=== PATIENT | female | born 1935 | race Caucasian/White ===

== ENCOUNTER 2016-03-07 10:19 | Emergency (ER) | payer MEDICARE, OTHER ==
[2016-03-07] MEDS ORDERED: KETOROLAC 30 MG/ML 1 ML VIAL IVP STA ×2 (10:32→12:04)
[2016-03-07] MEDS ORDERED: HYDROmorphone 1 MG/ML 1 ML SYRINGE IVP STA ×2 (10:32→15:15)
[2016-03-07 10:33] VITALS: TEMP 97.3
--- NOTE | 2016-03-07 10:45 | ED ---
Lower Extremity Injury HPI - General Stated Complaint: Right Hip Pain Time Seen by Provider: 03/07/16 10:19 Source: patient, family, EMS Mode of arrival: EMS Limitations: no limitations - History of Present Illness Initial Comments: This is a 80-year-old female history of back surgery as well as peripheral neuropathy who states she had the onset last night after sitting for several hours of severe sharp pain radiating from her right buttock and hip area to her right foot. She complains of pain to the right foot he denies any trauma she has had previous back surgeries however. She denies any urinary or fecal incontinence. She states the pain currently as 9/10 in severity and does increase to above 10 with movement. She did take one of her 's [place] without much improvement. She voices no other complaint. No reported fevers chills or sweats no focal weakness patient also does state she had some abdominal discomfort MD Complaint: other - Related Data Home Medications Medication Instructions Recorded Confirmed Aspirin 81 mg PO DAILY 04/24/14 03/07/16 Atenolol [Tenormin] 50 mg PO DAILY 04/24/14 03/07/16 Cholecalciferol [Vitamin D3] 2,000 unit PO DAILY@1200 04/24/14 03/07/16 Furosemide [Lasix] 40 mg PO DAILY 04/24/14 03/07/16 Lisinopril [Prinivil] 10 mg PO DAILY 04/24/14 03/07/16 Omeprazole [PriLOSEC] 20 mg PO AC-BRKFST 04/24/14 03/07/16 Febuxostat [Uloric] 40 mg PO DAILY 03/07/16 03/07/16 Garlic 1 tab PO DAILY 03/07/16 03/07/16 Multivitamins, Thera [Multivitamin] 1 tab PO DAILY 03/07/16 03/07/16 Pneumoc 13-Doris Conj-Dip Crm/Pf 0.5 ml IM ONCE 03/07/16 03/07/16 [Prevnar 13 Syringe] Previous Rx's Medication Instructions Recorded HYDROcodone/APAP 7.5-325MG [[place] 1 tab PO Q6HR PRN #30 tab 03/07/16 7.5-325] Allergies Allergy/AdvReac Type Severity Reaction Status Date / Time codeine Allergy Nausea & Verified 03/07/16 11:00 Vomiting Penicillins Allergy Unknown Verified 03/07/16 11:00 Sulfa (Sulfonamide Allergy Unknown Verified 03/07/16 11:00 Antibiotics) Review of Systems ROS Statement: Those systems with pertinent positive or pertinent negative responses have been documented in the HPI. ROS Other: All systems not noted in ROS Statement are negative. Past Medical History Past Medical History: Hyperlipidemia, Hypertension Additional Past Medical History / Comment(s): hemothorax History of Any Multi-Drug Resistant Organisms: None Reported Past Surgical History: Adenoidectomy, Appendectomy, Tonsillectomy, Tubal Ligation Past Psychological History: No Psychological Hx Reported Smoking Status: Former smoker Past Alcohol Use History: None Reported Past Drug Use History: None Reported General Exam - General Exam Comments Initial Comments: This is a well-developed well-nourished awake alert oriented 3 female Limitations: no limitations General appearance: alert, anxious, in distress Head exam: Present: atraumatic, normocephalic, normal inspection Eye exam: Present: normal appearance, PERRL, EOMI. Absent: scleral icterus, conjunctival injection, periorbital swelling ENT exam: Present: normal exam, mucous membranes moist Neck exam: Present: normal inspection. Absent: tenderness, meningismus, lymphadenopathy Respiratory exam: Present: normal lung sounds bilaterally. Absent: respiratory distress, wheezes, rales, rhonchi, stridor Cardiovascular Exam: Present: regular rate, normal rhythm, normal heart sounds. Absent: systolic murmur, diastolic murmur, rubs, gallop, clicks GI/Abdominal exam: Present: soft, normal bowel sounds. Absent: distended, tenderness, guarding, rebound, rigid, mass, bruit, pulsatile mass, hernia Rectal exam: Present: deferred Extremities exam: Present: normal inspection, full ROM, normal capillary refill , other (Tenderness over the right gluteal fold also some tenderness palpation of the right foot no sensory motor or vascular deficits however. Capillary refill is less than 2 seconds). Absent: tenderness, pedal edema, joint swelling , calf tenderness Back exam: Present: normal inspection, tenderness, other (Mild tenderness over the right paraspinous muscles at the lower lumbar SI region no bony prominence tenderness no step-off or crepitation.). Absent: CVA tenderness (R), CVA tenderness (L) Neurological exam: Present: alert, oriented X3, CN II-XII intact Psychiatric exam: Present: normal affect, normal mood Skin exam: Present: warm, dry, intact, normal color. Absent: rash Course Vital Signs 03/07/16 03/07/16 03/07/16 10:31 12:35 15:28 Temperature 97.3 F L Pulse Rate 75 61 Respiratory 18 16 16 Rate Blood Pressure 174/79 178/81 O2 Sat by Pulse 98 99 100 Oximetry - Reevaluation(s) Reevaluation #1: 03/07/16 10:48 Per family patient does have a MRI information [facility]. They'll be reviewed before any imaging is considered. Reevaluation #2: 03/07/16 12:04 Patient is getting some relief at rest still has she states significant pain with movement. Medical Decision Making - Medical Decision Making I did reevaluate the patient on several occasions she states she had minimal improvement of her pain I did offer her admission for pain control she will not accept that at this time due to the insurance status of an observational nature. She'll be discharged with a prescription for [place] pain medication she did receive Decadron she is follow-up with her doctor and return when necessary - Lab Data Result diagrams: 03/07/16 10:50 03/07/16 10:50 Lab Results 03/07/16 03/07/16 03/07/16 Range/Units 10:50 10:50 13:00 WBC 8.2 (3.8-10.6) k/uL RBC 3.86 (3.80-5.40) m/uL Hgb 12.4 (11.4-16.0) gm/dL Hct 36.3 (34.0-46.0) % MCV 94.0 (80.0-100.0) fL MCH 32.0 (25.0-35.0) pg MCHC 34.1 (31.0-37.0) g/dL RDW 12.3 (11.5-15.5) % Plt Count 237 (150-450) k/uL Neutrophils % 73 % Lymphocytes % 17 % Monocytes % 5 % Eosinophils % 3 % Basophils % 1 % Neutrophils # 6.0 (1.3-7.7) k/uL Lymphocytes # 1.3 (1.0-4.8) k/uL Monocytes # 0.4 (0-1.0) k/uL Eosinophils # 0.2 (0-0.7) k/uL Basophils # 0.0 (0-0.2) k/uL Sodium 141 (137-145) mmol/L Potassium 4.1 (3.5-5.1) mmol/L Chloride 101 (98-107) mmol/L Carbon Dioxide 27 (22-30) mmol/L Anion Gap 13 mmol/L BUN 24 H (7-17) mg/dL Creatinine 1.09 H (0.52-1.04) mg/dL Est GFR (MDRD) Af Amer 59 (>60 ml/min/1.73 sqM) Est GFR (MDRD) Non-Af 48 (>60 ml/min/1.73 sqM) Glucose 107 H (74-99) mg/dL Calcium 9.2 (8.4-10.2) mg/dL Magnesium 1.8 (1.6-2.3) mg/dL Total Bilirubin 0.5 (0.2-1.3) mg/dL AST 25 (14-36) U/L ALT 36 (9-52) U/L Alkaline Phosphatase 71 (38-126) U/L Total Protein 6.8 (6.3-8.2) g/dL Albumin 4.1 (3.5-5.0) g/dL Amylase 79 (30-110) U/L Lipase 36 (23-300) U/L Urine Color Yellow Urine Appearance Cloudy H (Clear) Urine pH 5.5 (5.0-8.0) Ur Specific [place] 1.012 (1.001-1.035) Urine Protein Negative (Negative) Urine Glucose (UA) Negative (Negative) Urine Ketones Negative (Negative) Urine Blood Negative (Negative) Urine Nitrate Negative (Negative) Urine Bilirubin Negative (Negative) Urine Urobilinogen <2.0 (<2.0) mg/dL Ur Leukocyte Esterase Large H (Negative) Urine RBC 11 H (0-5) /hpf Urine WBC 65 H (0-5) /hpf Ur Squamous Epith Cells 11 H (0-4) /hpf Hyaline Casts 5 H (0-2) /lpf Urine Mucus Rare H (None) /hpf - Radiology Data Radiology results: report reviewed (I did review the imaging and report there is evidence of degenerative changes spondylolisthesis no acute fractures.), image reviewed Disposition Clinical Impression: Mechanical back pain, Sciatica Disposition: HOME SELF-CARE Condition: Stable Instructions: Acute Low Back Pain (ED), Chronic Back Pain (ED), Sciatica (ED) Prescriptions: HYDROcodone/APAP 7.5-325MG [[place] 7.5-325] 1 tab PO Q6HR PRN #30 tab PRN Reason: Pain
[2016-03-07 11:13] LABS: Basophils % (A) 1 %; CH 32.1; CHCM 34.3; Eosinophils # (A) 0.2 k/uL (0-0.7); Eosinophils % (A) 3 %; HCT 36.3 % (34.0-46.0); HDW 2.52; HGB 12.4 gm/dL (11.4-16.0); Luc # (Auto) 0.21; Luc % (Auto) 3; Lymphocytes # (A) 1.3 k/uL (1.0-4.8); Lymphocytes % (A) 17 %; MCHC 34.1 g/dL (31.0-37.0); Mean Platelet Volume 7.2; Monocytes # (A) 0.4 k/uL (0-1.0); Monocytes % (A) 5 %; Neutrophils % (A) 73 %; RBC 3.86 m/uL (3.80-5.40); RDW 12.3 % (11.5-15.5); WBC 8.2 k/uL (3.8-10.6); WBC (Perox) 8.42
[2016-03-07 11:19] LABS: Calcium 9.2 mg/dL (8.4-10.2); Magnesium 1.8 mg/dL (1.6-2.3); Potassium 4.1 mmol/L (3.5-5.1); Total Bilirubin 0.5 mg/dL (0.2-1.3); Total Protein 6.8 g/dL (6.3-8.2)
[2016-03-07] MEDS ORDERED: DEXAMETHASONE SOD PHOSPHATE 10 MG/ML 1 ML VIAL IV STA (12:04)
[2016-03-07 12:37] VITALS: RESP 16
[2016-03-07] MEDS ORDERED: SODIUM CHLORIDE 0.9% 1,000 ML IV STA (13:07)
[2016-03-07 13:16] LABS: Appearance,Urine Cloudy (Clear); Bilirubin,Urine Negative (Negative); Glucose,Urine (UA) Negative (Negative); Ketones,Urine Negative (Negative); Leukocyte Esterase,Urine Large (Negative); Mucus,Urine Rare /hpf; Nitrite,Urine Negative (Negative); PH, Urine 5.5 (5.0-8.0); Particle Count 7907; Protein,Urine Negative (Negative); RBC,Urine 11 /hpf (0-5); Specific Gravity,Urine 1.012 (1.001-1.035); Squamous Epithelial Cell,Urine 11 /hpf (0-4); UA Billing (MACRO vs. MICRO) MICRO; Urobilinogen,Urine <2.0 mg/dL (<2.0); WBC,Urine 65 /hpf (0-5)
--- NOTE | 2016-03-07 14:30 | CT ---
EXAMINATION TYPE: CT lumbar spine wo con DATE OF EXAM: 03/07/2016 2:18 PM COMPARISON: 03/08/2010 HISTORY: Right hip pain CT DLP: 489.60 mGycm Automated exposure control for dose reduction was used. Unenhanced CT of the lumbar spine was performed. Bone and soft tissue window settings are submitted as well as coronal and sagittal reconstructions. At T12-L1 there is stable fusion. At L1-L2, there is no disc bulge, central or foraminal narrowing. At L2-L3, there is moderate canal narrowing due to facet arthropathy, circumferential disc bulge and thickened ligamentum flavum. Bilateral significant foraminal encroachment. At L3-L4, there is grade 1 anterolisthesis of L3 on L4 likely due to facet arthropathy. There is cent ral canal stenosis due to circumferential disc bulge and bilateral facet arthropathy. Findings sugges t previous surgery correlate clinically. Severe degenerative disc disease noted. At L4-L5, there is bilateral facet arthropathy and circumferential disc bulge resulting to mild centr al canal narrowing. Severe degenerative disc disease noted. Correlate for previous surgery. At L5-S1, there is no disc bulge, central or foraminal narrowing. There is an incidental finding of r ight renal cysts. IMPRESSION: Extensive postsurgical change and severe degenerative disc disease with multilevel foraminal encroach ment and canal stenosis as discussed above. Grade 1 anterolisthesis L3 on L4 appears degenerative.
[2016-03-07 16:15] VITALS: BP 159/81; PULSE 71
== END 2016-03-07 16:15 | disposition home or self-care (01) ==
LOC: EC 10:19
DX: M54.30 Sciatica, unspecified side (principal); I10 Essential (primary) hypertension; M47.816 Spondylosis without myelopathy or radiculopathy, lumbar region; M51.36 Other intervertebral disc degeneration, lumbar region; M48.06 Spinal stenosis, lumbar region; M51.26 Other intervertebral disc displacement, lumbar region; Z87.891 Personal history of nicotine dependence; Z88.0 Allergy status to penicillin; Z88.5 Allergy status to narcotic agent; Z88.2 Allergy status to sulfonamides; Z79.82 Long term (current) use of aspirin; Z79.899 Other long term (current) drug therapy
CPT/HCPCS: 99284; 96374; 96375 ×2; 96376 ×2; 96361 ×3; 36415; 80053; 82150; 83690; 83735; 85025; 81001; 72131; J1100; J1885; J1170

== ENCOUNTER → 2016-07-11 | Outpatient (CLI) | payer MEDICARE, OTHER ==
[2016-07-11 17:37] LABS: CH 31.2; CHCM 33.3; HCT 36.5 % (34.0-46.0); HGB 11.9 gm/dL (11.4-16.0); MCH 30.6 pg (25.0-35.0); MCHC 32.6 g/dL (31.0-37.0); MCV 94.1 fL (80.0-100.0); Mean Platelet Volume 7.4; RBC 3.88 m/uL (3.80-5.40); RDW 13.1 % (11.5-15.5); WBC 13.9 k/uL (3.8-10.6)
[2016-07-11 18:00] LABS: Calcium 9.8 mg/dL (8.4-10.2); Potassium 3.8 mmol/L (3.5-5.1); Total Bilirubin 0.6 mg/dL (0.2-1.3); Total Protein 7.5 g/dL (6.3-8.2)
--- NOTE | 2016-07-11 19:31 | CT ---
EXAMINATION TYPE: CT abdomen pelvis wo con DATE OF EXAM: 07/11/2016 7:23 PM COMPARISON: NONE HISTORY: Generalized abdominal pain x 1 week with nausea and vomiting. CT DLP: 609.00 mGycm Automated exposure control for dose reduction was used. TECHNIQUE: Helical acquisition of images was performed from the lung bases through the pelvis. FINDINGS: Lung bases are clear. There is no pleural effusion. There is a large hiatal hernia. Liver spleen pancreas appear normal. Gallbladder is contracted. There is a 3 cm cortical cyst on the lateral right kidney. There is no hydronephrosis. There is no adrenal mass. There is no retroperitone al adenopathy. Abdominal aorta is atheromatous. There is no ascites. Bladder is almost empty. There i s no pelvic mass. There are multiple sigmoid diverticula. Appendix is not seen. There is no sign of a ppendicitis. There is lumbar spine surgery with laminectomy defect in the lower lumbar spine. There i s a first-degree L4-5 spondylolisthesis. There is a moderate posterior disc herniation at L4-5. IMPRESSION: SPONDYLOTIC CHANGES IN THE LUMBAR SPINE WITH DISC HERNIATION AND SPONDYLOLISTHESIS. HIATAL HERNIA. ATHEROSCLEROTIC VASCULAR DISEASE. NO SIGN OF ACUTE ABDOMEN AND PELVIS. SIGMOID DIVERTICULOSIS WITHOUT SIGN OF DIVERTICULITIS.
== END | disposition home or self-care (01) ==
LOC: RADCTMAIN 17:09
PROVIDERS: ATTEND Physician Assistant
DX: K57.30 Diverticulosis of large intestine without perforation or abscess without bleeding (principal); K92.1 Melena
CPT/HCPCS: 36415; 74176; 80053; 82150; 83690; 85027

== ENCOUNTER → 2016-07-13 | Outpatient (CLI) | payer MEDICARE, OTHER ==
[~2016-07-13] MED LIST: SODIUM CHLORIDE 0.9% 1,000 ML IV ONE; SODIUM CHLORIDE 0.9% 250 ML in EMPTY BAG 1 BAG IV PRN; SODIUM CHLORIDE 0.9% 500 ML in EMPTY BAG 1 BAG IV PRN
[2016-07-13 13:32] VITALS: BP 121/56; PULSE 62; RESP 16; TEMP 98.3
[2016-07-13 15:32] LABS: CH 30.9; CHCM 32.9; HCT 33.1 % (34.0-46.0); HDW 2.62; HGB 11.2 gm/dL (11.4-16.0); MCH 31.8 pg (25.0-35.0); MCHC 33.7 g/dL (31.0-37.0); MCV 94.3 fL (80.0-100.0); Mean Platelet Volume 7.3; RBC 3.51 m/uL (3.80-5.40); RDW 12.9 % (11.5-15.5); WBC 8.6 k/uL (3.8-10.6)
[2016-07-13 15:56] LABS: Calcium 9.1 mg/dL (8.4-10.2); Potassium 3.9 mmol/L (3.5-5.1); Total Bilirubin 0.3 mg/dL (0.2-1.3); Total Protein 6.3 g/dL (6.3-8.2)
== END ==
LOC: PROCWHC3 12:50
PROVIDERS: ATTEND Physician Assistant
DX: E86.0 Dehydration (principal); K57.30 Diverticulosis of large intestine without perforation or abscess without bleeding; D72.829 Elevated white blood cell count, unspecified
CPT/HCPCS: 36415; 80053; 85027; 96360; 96361

== ENCOUNTER 2016-07-16 11:11 | Emergency (ER) | payer MEDICARE, OTHER ==
[2016-07-16] MEDS ORDERED: ONDANSETRON 4 MG/2 ML VIAL IVP STA (11:52)
[2016-07-16] MEDS ORDERED: SODIUM CHLORIDE 0.9% 1,000 ML IV STA (11:52)
--- NOTE | 2016-07-16 12:05 | ED ---
General Adult HPI - General Chief complaint: Abdominal Pain Stated complaint: vomiting Time Seen by Provider: 07/16/16 11:35 Source: patient, family, RN notes reviewed Mode of arrival: wheelchair - History of Present Illness Initial comments: Is a 80-year-old female comes in complaining of nausea and vomiting. Patient states about 9 days ago she vomited for 2 days and then after that she just felt weak she started taking Kaopectate after that because her stomach was still upset. She went to see her family doctor and she saw the PA in the office they did a CAT scan on the CAT scan showed no signs of any inflammation and they started her on Flagyl and Cipro anyhow. Patient states last 2 mornings after she takes her antibiotic she throws them up. Patient states remains very nauseated. Patient states she has chronic diffuse abdominal discomfort but no specific area of pain. Patient states she is mainly here because she is nauseated. Patient denies any diarrhea. Patient denies any fever or chills. Patient denies any difficulty breathing shortness of breath or cough. Patient denies any chest pain. Patient denies any dysuria hematuria urinary frequency. Patient denies any back pain. Patient's stated that for the last week she has not been eating or drinking much at all. - Related Data Home Medications Medication Instructions Recorded Confirmed Atenolol [Tenormin] 50 mg PO DAILY 04/24/14 07/16/16 Furosemide [Lasix] 40 mg PO DAILY 04/24/14 07/16/16 Lisinopril [Prinivil] 10 mg PO DAILY 04/24/14 07/16/16 Febuxostat [Uloric] 40 mg PO DAILY 03/07/16 07/16/16 Multivitamins, Thera [Multivitamin] 1 tab PO DAILY 03/07/16 07/16/16 Omeprazole 20 mg PO DAILY 07/13/16 07/16/16 Ciprofloxacin HCl [Cipro] 500 mg PO BID 07/16/16 07/16/16 Vit C/E/Zn/Coppr/Lutein/Zeaxan 1 cap PO DAILY 07/16/16 07/16/16 [Preservision Areds 2 Softgel] metroNIDAZOLE [Flagyl] 500 mg PO TID 07/16/16 07/16/16 Previous Rx's Medication Instructions Recorded Ondansetron Odt [Zofran Odt] 4 mg PO Q8HR PRN #10 tab 07/16/16 Allergies Allergy/AdvReac Type Severity Reaction Status Date / Time codeine Allergy Nausea & Verified 07/16/16 12:03 Vomiting Penicillins Allergy Unknown Verified 07/16/16 12:03 Sulfa (Sulfonamide Allergy Unknown Verified 07/16/16 12:03 Antibiotics) Review of Systems ROS Statement: Those systems with pertinent positive or pertinent negative responses have been documented in the HPI. ROS Other: All systems not noted in ROS Statement are negative. Past Medical History Past Medical History: Hyperlipidemia, Hypertension Additional Past Medical History / Comment(s): hemothorax History of Any Multi-Drug Resistant Organisms: None Reported Past Surgical History: Adenoidectomy, Appendectomy, Tonsillectomy, Tubal Ligation Additional Past Surgical History / Comment(s): LOWER BACK SURGERY, DROP RIGHT FOOT Past Psychological History: No Psychological Hx Reported Smoking Status: Former smoker Past Alcohol Use History: None Reported Past Drug Use History: None Reported General Exam - General Exam Comments Initial Comments: GENERAL: Patient is well-developed and well-nourished. Patient is nontoxic and well- hydrated and is in mild distress. ENT: Neck is soft and supple. No significant lymphadenopathy is noted. Oropharynx is clear. Moist mucous membranes. Neck has full range of motion without eliciting any pain. EYES: The sclera were anicteric and conjunctiva were pink and moist. Extraocular movements were intact and pupils were equal round and reactive to light. Eyelids were unremarkable. PULMONARY: Unlabored respirations. Good breath sounds bilaterally. No audible rales rhonchi or wheezing was noted. CARDIOVASCULAR: There is a regular rate and rhythm without any murmurs gallops or rubs. ABDOMEN: Very mild epigastric abdominal pain no rebound or guarding.. No palpable organomegaly was noted. There is no palpable pulsatile mass. SKIN: Skin is clear with no lesions or rashes and otherwise unremarkable. NEUROLOGIC: Patient is alert and oriented x3. Cranial nerves II through XII are grossly intact. Motor and sensory are also intact. Normal speech, volume and content. Symmetrical smile. MUSCULOSKELETAL: Normal extremities with adequate strength and full range of motion. LYMPHATICS: No significant lymphadenopathy is noted PSYCHIATRIC: Normal psychiatric evaluation. Normal interpersonal interactions appears functionally intact in deals appropriately with others. No signs of depression. No signs of anxiety. Course Vital Signs 07/16/16 07/16/16 11:33 14:43 Temperature 98.2 F 97.3 F L Pulse Rate 71 61 Respiratory 18 16 Rate Blood Pressure 113/71 134/62 O2 Sat by Pulse 99 99 Oximetry Medical Decision Making - Medical Decision Making I went back into reevaluate the patient she stated she felt much better and she was no longer nauseated. Patient states she wants to go home and try to eat and drink some fluid and see if that makes it feel better. Patient indicated that she no longer was having any abdominal pain. Patient's blood gas was elevated secondary to dehydration - Lab Data Result diagrams: 07/16/16 12:30 07/16/16 12:30 Lab Results 07/16/16 07/16/16 07/16/16 Range/Units 12:30 12:30 12:30 WBC 11.5 H (3.8-10.6) k/uL RBC 4.12 (3.80-5.40) m/uL Hgb 12.4 (11.4-16.0) gm/dL Hct 38.6 (34.0-46.0) % MCV 93.8 (80.0-100.0) fL MCH 30.0 (25.0-35.0) pg MCHC 32.0 (31.0-37.0) g/dL RDW 13.1 (11.5-15.5) % Plt Count 284 (150-450) k/uL Neutrophils % 81 % Lymphocytes % 11 % Monocytes % 5 % Eosinophils % 1 % Basophils % 1 % Neutrophils # 9.3 H (1.3-7.7) k/uL Lymphocytes # 1.3 (1.0-4.8) k/uL Monocytes # 0.6 (0-1.0) k/uL Eosinophils # 0.1 (0-0.7) k/uL Basophils # 0.1 (0-0.2) k/uL Sodium 135 L (137-145) mmol/L Potassium 4.1 (3.5-5.1) mmol/L Chloride 96 L (98-107) mmol/L Carbon Dioxide 26 (22-30) mmol/L Anion Gap 13 mmol/L BUN 18 H (7-17) mg/dL Creatinine 1.11 H (0.52-1.04) mg/dL Est GFR (MDRD) Af Amer 57 (>60 ml/min/1.73 sqM) Est GFR (MDRD) Non-Af 47 (>60 ml/min/1.73 sqM) Glucose 120 H (74-99) mg/dL Plasma Lactic Acid [place] 2.2 H* (0.7-2.0) mmol/L Calcium 10.0 (8.4-10.2) mg/dL Total Bilirubin 0.5 (0.2-1.3) mg/dL AST 52 H (14-36) U/L ALT 47 (9-52) U/L Alkaline Phosphatase 76 (38-126) U/L Total Protein 7.2 (6.3-8.2) g/dL Albumin 4.2 (3.5-5.0) g/dL Amylase 79 (30-110) U/L Lipase 102 (23-300) U/L Urine Color Urine Appearance (Clear) Urine pH (5.0-8.0) Ur Specific [place] (1.001-1.035) Urine Protein (Negative) Urine Glucose (UA) (Negative) Urine Ketones (Negative) Urine Blood (Negative) Urine Nitrite (Negative) Urine Bilirubin (Negative) Urine Urobilinogen (<2.0) mg/dL Ur Leukocyte Esterase (Negative) Urine RBC (0-5) /hpf Urine WBC (0-5) /hpf Urine WBC Clumps (None) /hpf Ur Squamous Epith Cells (0-4) /hpf Urine Bacteria (None) /hpf Hyaline Casts (0-2) /lpf Urine Mucus (None) /hpf 07/16/ Range/Units 12:30 WBC (3.8-10.6) k/uL RBC (3.80-5.40) m/uL Hgb (11.4-16.0) gm/dL Hct (34.0-46.0) % MCV (80.0-100.0) fL MCH (25.0-35.0) pg MCHC (31.0-37.0) g/dL RDW (11.5-15.5) % Plt Count (150-450) k/uL Neutrophils % % Lymphocytes % % Monocytes % % Eosinophils % % Basophils % % Neutrophils # (1.3-7.7) k/uL Lymphocytes # (1.0-4.8) k/uL Monocytes # (0-1.0) k/uL Eosinophils # (0-0.7) k/uL Basophils # (0-0.2) k/uL Sodium (137-145) mmol/L Potassium (3.5-5.1) mmol/L Chloride (98-107) mmol/L Carbon Dioxide (22-30) mmol/L Anion Gap mmol/L BUN (7-17) mg/dL Creatinine (0.52-1.04) mg/dL Est GFR (MDRD) Af Amer (>60 ml/min/1.73 sqM) Est GFR (MDRD) Non-Af (>60 ml/min/1.73 sqM) Glucose (74-99) mg/dL Plasma Lactic Acid [place] (0.7-2.0) mmol/L Calcium (8.4-10.2) mg/dL Total Bilirubin (0.2-1.3) mg/dL AST (14-36) U/L ALT (9-52) U/L Alkaline Phosphatase (38-126) U/L Total Protein (6.3-8.2) g/dL Albumin (3.5-5.0) g/dL Amylase (30-110) U/L Lipase (23-300) U/L Urine Color Light Yellow Urine Appearance Clear (Clear) Urine pH 5.5 (5.0-8.0) Ur Specific [place] 1.004 (1.001-1.035) Urine Protein Negative (Negative) Urine Glucose (UA) Negative (Negative) Urine Ketones Negative (Negative) Urine Blood Negative (Negative) Urine Nitrite Negative (Negative) Urine Bilirubin Negative (Negative) Urine Urobilinogen <2.0 (<2.0) mg/dL Ur Leukocyte Esterase Moderate H (Negative) Urine RBC 1 (0-5) /hpf Urine WBC 5 (0-5) /hpf Urine WBC Clumps Few H (None) /hpf Ur Squamous Epith Cells 2 (0-4) /hpf Urine Bacteria Occasional H (None) /hpf Hyaline Casts 3 H (0-2) /lpf Urine Mucus Rare H (None) /hpf Disposition Clinical Impression: Acute vomiting Disposition: HOME SELF-CARE Condition: Good Instructions: Acute Nausea and Vomiting (ED) Additional Instructions: Patient should stop taking Flagyl. Prescriptions: Ondansetron Odt [Zofran Odt] 4 mg PO Q8HR PRN #10 tab PRN Reason: Nausea And Vomiting Referrals: Hans Acosta MD [Primary Care Provider] - 1-2 days Time of Disposition: 14:27
[2016-07-16 12:44] LABS: Basophils # (A) 0.1 k/uL (0-0.2); Basophils % (A) 1 %; CH 30.6; CHCM 32.8; Eosinophils # (A) 0.1 k/uL (0-0.7); Eosinophils % (A) 1 %; HCT 38.6 % (34.0-46.0); HDW 2.57; HGB 12.4 gm/dL (11.4-16.0); Luc # (Auto) 0.16; Luc % (Auto) 1; Lymphocytes # (A) 1.3 k/uL (1.0-4.8); Lymphocytes % (A) 11 %; MCV 93.8 fL (80.0-100.0); Mean Platelet Volume 6.9; Monocytes # (A) 0.6 k/uL (0-1.0); Monocytes % (A) 5 %; Neutrophils # (A) 9.3 k/uL (1.3-7.7); Neutrophils % (A) 81 %; RBC 4.12 m/uL (3.80-5.40); RDW 13.1 % (11.5-15.5); WBC 11.5 k/uL (3.8-10.6); WBC (Perox) 11.34
--- NOTE | 2016-07-16 12:50 | XR ---
EXAMINATION TYPE: XR KUB DATE OF EXAM: 07/16/2016 12:46 PM COMPARISON: 04/24/2014 HISTORY: Vomiting TECHNIQUE: One view abdominal series FINDINGS: The osseous structures are intact. The bowel gas pattern is nonspecific. Lung bases are clear. Refrigeration Manager trung rib deformities with scoliosis and degenerative disc disease noted. Arthropathy of the hip joints . Nodular density overlying the right lower lobe. IMPRESSION: 1. Nonspecific abdomen. No diagnostic evidence of obstruction. 2. Nodular density overlying the right lower lobe likely related to nipple shadow. Correlate clinical ly.
[2016-07-16 12:53] LABS: Potassium 4.1 mmol/L (3.5-5.1); Total Bilirubin 0.5 mg/dL (0.2-1.3); Total Protein 7.2 g/dL (6.3-8.2)
[2016-07-16 13:11] LABS: Appearance,Urine Clear (Clear); Bacteria,Urine Occasional /hpf; Bilirubin,Urine Negative (Negative); Glucose,Urine (UA) Negative (Negative); Ketones,Urine Negative (Negative); Leukocyte Esterase,Urine Moderate (Negative); Mucus,Urine Rare /hpf; Nitrite,Urine Negative (Negative); PH, Urine 5.5 (5.0-8.0); Particle Count 1049; Protein,Urine Negative (Negative); RBC,Urine 1 /hpf (0-5); Specific Gravity,Urine 1.004 (1.001-1.035); Squamous Epithelial Cell,Urine 2 /hpf (0-4); UA Billing (MACRO vs. MICRO) MICRO; Urobilinogen,Urine <2.0 mg/dL (<2.0); WBC,Urine 5 /hpf (0-5)
[2016-07-16 14:45] VITALS: BP 134/62; PULSE 61; RESP 16; TEMP 97.3
== END 2016-07-16 14:43 | disposition home or self-care (01) ==
LOC: EC 11:11
DX: R11.2 Nausea with vomiting, unspecified (principal); R10.84 Generalized abdominal pain; R53.1 Weakness; E86.0 Dehydration; I10 Essential (primary) hypertension; Z87.891 Personal history of nicotine dependence; Z79.899 Other long term (current) drug therapy; Z88.0 Allergy status to penicillin; Z88.2 Allergy status to sulfonamides; Z88.5 Allergy status to narcotic agent
CPT/HCPCS: 99284; 96374; 36415; 80053; 82150; 83605; 83690; 85025; 81001; 74000; J2405

== ENCOUNTER → 2016-11-19 | Outpatient (CLI) | payer MEDICARE, OTHER ==
--- NOTE | 2016-11-20 08:52 | MM ---
Reason for exam: screening (asymptomatic). Last mammogram was performed 1 year ago. History: Patient is postmenopausal, has history of breast cancer at age 66, and history of other cancer. Benign stereotactic core biopsy of the left breast, November 26, 2002. Benign stereotactic core biopsy of the left breast, November 26, 2002. Malignant stereotactic core biopsy of the right breast, February 05, 2002. Radiation therapy of the right breast, 2001. Excisional biopsy of the right breast, March 26, 2000. Core biopsy of the left breast. Core biopsy of the right breast. Lumpectomy of the right breast. Took hormonal contraceptives for 28 years beginning at age 20. Took estrogen for 18 years beginning at age 48. Took tamoxifen for 3 months. Physical Findings: A clinical breast exam by your physician is recommended on an annual basis and results should be correlated with mammographic findings. MG 3D Screening Mammo W/Cad Bilateral CC and MLO view(s) were taken. Prior study comparison: November 16, 2015, bilateral MG 3d diag mammo w/cad [facility]. November 12, 2014, bilateral MG diagnostic mammo w CAD [facility]. November 06, 2013, bilateral MG diagnostic mammo w CAD [facility]. January 05, 2011, CAD bilateral diagnostic mammogram. January 04, 2010, bilateral diagnostic digital mammog. The breast tissue is heterogeneously dense. This may lower the sensitivity of mammography. Post surgical changes in the right breast with surgical clips, scar and fat necrosis posterior upper outer quadrant are unchanged. Suggestion of underlying cysts in the left breast fluctuating in size as compared to 2016. Subareolar asymmetric density in the left MLO view appears more defined. These results were verbally communicated with the patient and result sheet given to the patient on 11/19/16. ASSESSMENT: Incomplete: need additional imaging evaluation, BI-RAD 0 RECOMMENDATION: Special view mammogram of the left breast. If lesion persists on supplemental views, image directed ultrasound is recommended. [facility] will attempt to contact patient to return for supplemental views and ultrasound if indicated.
--- NOTE | 2016-11-20 09:00 | MM ---
Reason for exam: additional evaluation requested from abnormal screening. Last mammogram was performed 1 year ago. History: Patient is postmenopausal, has history of breast cancer at age 66, and history of other cancer. Benign stereotactic core biopsy of the left breast, November 26, 2002. Benign stereotactic core biopsy of the left breast, November 26, 2002. Malignant stereotactic core biopsy of the right breast, February 05, 2002. Radiation therapy of the right breast, 2001. Excisional biopsy of the right breast, March 26, 2000. Core biopsy of the left breast. Core biopsy of the right breast. Lumpectomy of the right breast. Took hormonal contraceptives for 28 years beginning at age 20. Took estrogen for 18 years beginning at age 48. Took tamoxifen for 3 months. Physical Findings: Nurse Summary: 1cm nodule in the right breast at 7 o'clock and 11 o'clock and a 1cm nodule in the left breast at 12 o'clock (nurse kp). MG 3D Work Up W/Cad LT CC, MLO, LM, and spot compression MLO view(s) were taken of the left breast. Prior study comparison: November 16, 2015, bilateral MG 3d diag mammo w/cad MONTEZ. November 16, 2015, left breast US breast limited LT. November 12, 2014, bilateral MG diagnostic mammo w CAD MONTEZ. The breast tissue is heterogeneously dense. This may lower the sensitivity of mammography. The questioned subareolar asymmetry does not persist on true lateral. A precautionary 6 months follow up mammogram can be performed if ultrasound does not show a suspicious abnormality on the left breast. These results were verbally communicated with the patient and result sheet given to the patient on 11/19/16. ASSESSMENT: Incomplete: need additional imaging evaluation, BI-RAD 0 RECOMMENDATION: Ultrasound of both breasts.
--- NOTE | 2016-11-20 09:20 | USB ---
Reason for exam: additional evaluation requested from abnormal screening. History: Patient is postmenopausal, has history of breast cancer at age 66, and history of other cancer. Benign stereotactic core biopsy of the left breast, November 26, 2002. Benign stereotactic core biopsy of the left breast, November 26, 2002. Malignant stereotactic core biopsy of the right breast, February 05, 2002. Radiation therapy of the right breast, 2001. Excisional biopsy of the right breast, March 26, 2000. Core biopsy of the left breast. Core biopsy of the right breast. Lumpectomy of the right breast. Took hormonal contraceptives for 28 years beginning at age 20. Took estrogen for 18 years beginning at age 48. Took tamoxifen for 3 months. US Breast Workup Limited [facility] Right breast ultrasound demonstrates a 8 x 5 x 6mm irregular, solid, hypoecoic lesion at 7 o'clock at palpable, susupicious for which a biopsy is recommended, a 18 x 8 x 9mm oval, solid lesion, calcifications at 12 o'clock at palpable suggestive of fat necrosis seen on mammogram and a 6 x 5 x 4mm oval, solid lesion, calcification at 12 o'clock. Left breast ultrasound demonstrates a 20 x 9 x 19mm oval, cystic, benign lesion at 11 o'clock at palpable, a 7 x 6mm oval, cystic, benign lesion at the posterior nipple and a 9 x 8mm oval, cystic benign lesion at the posterior nipple. These results were verbally communicated with the patient and result sheet given to the patient on 11/19/16. ASSESSMENT: Suspicious, BI-RAD 4 RECOMMENDATION: 1. Surgical consultation and ultrasound core biopsy of the right breast (7 o' clock). 2. A 6 month follow up of left breast mammogram as a precautionary measure. Called Dr. Acosta with mammographic findings and has scheduled an appointment for the patient for 11/21/16 at 10:[address] Kwong. PRELIMINARY REPORT CALLED AND FAXED TO DR. KWONG ON 11/20/16. [facility]
== END | disposition home or self-care (01) ==
LOC: RADMAMWWP 12:53
PROVIDERS: ATTEND Internal Medicine
DX: Z12.31 Encounter for screening mammogram for malignant neoplasm of breast (principal); R92.8 Other abnormal and inconclusive findings on diagnostic imaging of breast
CPT/HCPCS: 77063; 76642; G0202; G0206; G0279

== ENCOUNTER → 2016-11-29 | Day surgery (SDC) | payer MEDICARE, OTHER ==
[2016-11-29 08:48] VITALS: RESP 16; TEMP 97; BMI 21.4
--- NOTE | 2016-11-29 10:29 | USB ---
EXAMINATION TYPE: US biopsy breast VAD RT, Postbiopsy diagnostic mammo RT wo CAD DATE OF EXAM: 11/29/2016 CLINICAL HISTORY: 81-year-old female history of remote right breast cancer treated with lumpectomy. Palpable finding in the 7:00 right breast. Referred for biopsy. TECHNIQUE: Ultrasound guided core biopsy of the 7:00 position right breast. COMPARISON: 11/19/2016 FINDINGS: The procedure of ultrasound guided core biopsy was explained to the patient. Benefits, alternatives, and risks were discussed. An informed consent was then obtained. The patient was placed in supine positioning for imaging and for the procedure. The overlying skin was prepped and draped in usual sterile fashion. Lidocaine was used as anesthetic into the skin and subcutaneous tissue up to area of concern in the deep right breast. Under ultrasound guidance, a 13-gauge vacuum-assisted mammotome Elite biopsy gun device was used to obtain 5 core samples. Following this, a coil clip was left in lesion. The patient tolerated the procedure well without any immediate complication. The patient was kept in the radiology department for short stay after the procedure and then discharged home in stable condition. Microclip is seen posteriorly in the right breast on the true lateral view below the retroareolar plane. It is located too far posteriorly to be seen on the CC view. IMPRESSION: Successful, uncomplicated ultrasound guided core biopsy of area of concern in the 7:00 right breast, full pathology results to follow. Pathology Results: Malignant BREAST, RIGHT, CORE BIOPSY: INVASIVE LOBULAR CARCINOMA. SEE SURGICAL PATHOLOGY CANCER CASE SUMMARY AND COMMENT. Recommendation Surgical consult of the right breast. ELIF
[2016-11-29 10:36] VITALS: BP 135/76; PULSE 62
== END ==
LOC: RADUSWWP 08:24
PROVIDERS: ATTEND Student in an Organized Health Care Education/Training Program
DX: C50.911 Malignant neoplasm of unspecified site of right female breast (principal); Z85.3 Personal history of malignant neoplasm of breast
CPT/HCPCS: 19083; 88305; 88342; 88341; G0206; A4648; J2001; 88361; 88374

== ENCOUNTER → 2016-12-07 | Outpatient (CLI) | payer MEDICARE, OTHER ==
--- NOTE | 2016-12-07 17:32 | US ---
EXAMINATION TYPE: US pelvic complete DATE OF EXAM: 12/07/2016 COMPARISON: CT 07/2016 CLINICAL HISTORY: R97.1 Elevated CA Antigen 125. Difficult exam due to overlying bowel gas TECHNIQUE: Transabdominal (TA) Date of LMP: About 30 years ago EXAM MEASUREMENTS: Uterus: 5.0 x 2.2 x 3.2 cm Endometrial Stripe: 0.4 cm Right Ovary: Not visualized on this exam Left Ovary: Not visualized on this exam 1. Uterus: Anteverted 2. Endometrium: wnl as visualized 3. Right Ovary: Not visualized on this exam 4. Left Ovary: Not visualized on this exam 5. Bilateral Adnexa: wnl 6. Posterior cul-de-sac: wnl IMPRESSION: 1. Endometrium measures within normal limits as visualized. However, it is poorly defined and would r ecommend transvaginal imaging for further evaluation.
== END | disposition home or self-care (01) ==
LOC: RADUSWWP 15:47
PROVIDERS: ATTEND Internal Medicine
DX: R97.1 Elevated cancer antigen 125 [CA 125] (principal)
CPT/HCPCS: 76856

== ENCOUNTER → 2016-12-10 | Outpatient (CLI) | payer MEDICARE, OTHER ==
--- NOTE | 2016-12-10 19:43 | CT ---
EXAMINATION TYPE: CT ChestAbdPelvis w con DATE OF EXAM: 12/10/2016 COMPARISON: CT abdomen pelvis 07/11/2016 HISTORY: LOWER ABDOMINAL PAIN. CT DLP: 454.7 mGycm Automated exposure control for dose reduction was used. CONTRAST: CT scan of the chest, abdomen and pelvis is performed with Oral Contrast and with IV Contrast, patien t injected with 80 mL of Visipaque 320. FINDINGS: There is mild infiltrate at the lung apices. There are patchy reticular subpleural infiltrates in bot h lungs. There is a 3 x 2 cm nodular infiltrate at the right hemidiaphragm in the right lower lobe. T here is no pleural effusion. There is a large hiatal hernia. There is no pericardial effusion. I see no mediastinal adenopathy. There is no evidence of aortic aneurysm or dissection. Ascending aor ta measures 3.2 cm. There are no hilar masses. Gallbladder is dilated and measures 4.3 x 9.5 cm. Common bile duct is large and measures 1.3 cm. I se e no pancreatic mass. Spleen shows no focal defect. There is no adrenal mass. Kidneys show satisfactory contrast opacification. There is no hydronephrosi s. There is a 2.2 cm cortical cyst on the lateral right kidney. There is no retroperitoneal adenopath y. Abdominal aorta is atheromatous. Uterus is anteverted. Bladder distends smoothly. I see no pelvic mass. There are numerous phleboliths in the pelvis. I see no intestinal wall thickening. There are no dilated loops. There is minimal stranding in the anterior pararenal space on the right side. This is of uncertain significance. There is multilevel lumbar laminectomy defect. There is subluxation deformity at L4-5. IMPRESSION: There is a dilated gallbladder there is new compared to old exam and suspicious for acute cholecystitis. Common bile duct appears increased since last exam that raises the possibility of obs truction of the distal common bile duct. Hepatobiliary scan or MRCP might be helpful for further evaluation if clinically indicated. Stable right renal cortical cyst. There are some inflammatory changes in the right paracolic gutter t hat could relate to cholecystitis and appear new compared to old exam. Atherosclerotic vascular disease. Multilevel back surgery. Hiatal hernia. There are new pulmonary infiltrates compared to old exam with a 3 x 2 cm area of conso lidation at the right hemidiaphragm. This appearance is nonspecific.
== END | disposition home or self-care (01) ==
LOC: RADCTMAIN 17:55
PROVIDERS: ATTEND Internal Medicine
DX: N28.1 Cyst of kidney, acquired (principal); I70.90 Unspecified atherosclerosis; K44.9 Diaphragmatic hernia without obstruction or gangrene; K82.8 Other specified diseases of gallbladder; R91.8 Other nonspecific abnormal finding of lung field; R63.4 Abnormal weight loss
CPT/HCPCS: 82565; 84520; 71260; 74177; 36415; Q9967

== ENCOUNTER 2016-12-12 13:51 | Emergency (ER) | payer MEDICARE, OTHER ==
[2016-12-12 13:56] VITALS: RESP 18
[2016-12-12] MEDS ORDERED: DICYCLOMINE 20 MG TAB PO STA (15:13)
[2016-12-12] MEDS ORDERED: ONDANSETRON 4 MG/2 ML VIAL IVP STA (15:13)
[2016-12-12] MEDS ORDERED: SODIUM CHLORIDE 0.9% 2,000 ML IV ONE (15:13)
[2016-12-12] MEDS ORDERED: FAMOTIDINE 20 MG/2 ML VIAL IV STA (15:13)
[2016-12-12] MEDS ORDERED: KETOROLAC 30 MG/ML 1 ML VIAL IVP STA (15:17)
--- NOTE | 2016-12-12 15:27 | ED ---
General Adult HPI - General Chief complaint: Nausea/Vomiting/Diarrhea Stated complaint: Dehydration Time Seen by Provider: 12/12/16 14:57 Source: patient Mode of arrival: wheelchair Limitations: no limitations - History of Present Illness Initial comments: Patient is an 81-year-old female with a medical history of breast cancer, awaiting mastectomy on the , presents with a chief complaint of nausea, vomiting, and diarrhea. Patient states that her symptoms of been going on for 1 week. She presents to the emergency department with her today for concerns of dehydration. Patient admits to pain in her lower abdomen. Patient says it feels dull ache. There are no aggravating or alleviating factors. Timing is constant. Patient denies any other symptoms. Patient denies dysuria , or frequency. Patient currently under primary care for management of breast cancer. Patient states she had a CT scan of the abdomen and pelvis 2 days ago. - Related Data Home Medications Medication Instructions Recorded Confirmed Atenolol [Tenormin] 50 mg PO DAILY 12/12/16 12/12/16 Previous Rx's Medication Instructions Recorded Cephalexin [Keflex] 500 mg PO Q8HR #20 cap 12/12/16 Ondansetron [Zofran] 4 mg PO Q8HR PRN #20 tab 12/12/16 Allergies Allergy/AdvReac Type Severity Reaction Status Date / Time codeine Allergy Severe Nausea & Verified 12/12/16 15:24 Vomiting Penicillins Allergy Mild Unknown Verified 12/12/16 15:24 Childhood Sulfa (Sulfonamide Allergy Nausea & Verified 12/12/16 15:24 Antibiotics) Vomiting Review of Systems ROS Statement: Those systems with pertinent positive or pertinent negative responses have been documented in the HPI. ROS Other: All systems not noted in ROS Statement are negative. Constitutional: Denies: fever, chills Eyes: Denies: vision change ENT: Denies: congestion Respiratory: Denies: cough Cardiovascular: Denies: chest pain Endocrine: Denies: fatigue Gastrointestinal: Reports: abdominal pain, nausea, vomiting, diarrhea Genitourinary: Denies: dysuria, frequency Musculoskeletal: Denies: back pain Skin: Denies: rash Neurological: Denies: headache Past Medical History Past Medical History: Cancer, Hypertension Additional Past Medical History / Comment(s): hemophenothorax, hx right breast cancer 2001, hx skin cancer History of Any Multi-Drug Resistant Organisms: None Reported Past Surgical History: Adenoidectomy, Appendectomy, Tonsillectomy, Tubal Ligation Additional Past Surgical History / Comment(s): LOWER BACK SURGERY, DROP RIGHT FOOT Past Anesthesia/Blood Transfusion Reactions: No Reported Reaction Past Psychological History: No Psychological Hx Reported Smoking Status: Former smoker Past Alcohol Use History: None Reported Past Drug Use History: None Reported General Exam Limitations: no limitations General appearance: alert, in no apparent distress Head exam: Present: atraumatic, normocephalic Eye exam: Present: normal appearance ENT exam: Present: mucous membranes moist Respiratory exam: Present: normal lung sounds bilaterally Cardiovascular Exam: Present: regular rate, normal rhythm, normal heart sounds GI/Abdominal exam: Present: soft, tenderness (Patient has tenderness in the lower abdomen, suprapubic area.). Absent: distended Rectal exam: Present: deferred Extremities exam: Present: normal inspection Back exam: Present: normal inspection. Absent: CVA tenderness (R), CVA tenderness (L) Neurological exam: Present: alert, oriented X3 Psychiatric exam: Present: normal affect, normal mood Skin exam: Present: warm, dry, intact Course Vital Signs 12/12/16 12/12/16 13:54 16:46 Temperature 97.2 F L Pulse Rate 100 71 Respiratory 18 18 Rate Blood Pressure 120/81 178/75 O2 Sat by Pulse 98 100 Oximetry Medical Decision Making - Medical Decision Making The patient with history of breast cancer presents with a chief complaint of nausea, vomiting, diarrhea. Patient is computed tomography scan of her abdomen and pelvis 2 days ago, the report was obtained, significant findings are a dilated common bile duct and some inflammatory changes along the right colic gutter. History physical examination are questionable for a urinary tract infection, given the CT findings from 2 days ago, we'll send abdominal lab work. She'll be given 2 L of fluid. 6:40 PM Lab evaluation this patient is unremarkable except for strong evidence of a urinary tract infection, this is likely contributing to the patient's nausea and vomiting. I reviewed the computed tomography scan that she had 2 days previous. Significant findings included a dilated common bile duct and a dilated gallbladder however labwork today is inconsistent with acute cholecystitis as is the physical examination. At this time, there are no acute interventions required. Patient was given her first dose of Keflex in the emergency department, and given 2 L of IV fluids. Patient states she feels improved. At this time, patient is stable for discharge and follow-up primary care. All of her questions are answered to the best my ability. - Lab Data Result diagrams: 12/12/16 15:38 12/12/16 15:38 Lab Results 12/12/16 12/12/16 12/12/16 Range/Units 15:38 15:38 15:38 WBC 10.8 H (3.8-10.6) k/uL RBC 4.51 (3.80-5.40) m/uL Hgb 13.9 (11.4-16.0) gm/dL Hct 41.6 (34.0-46.0) % MCV 92.2 (80.0-100.0) fL MCH 30.9 (25.0-35.0) pg MCHC 33.5 (31.0-37.0) g/dL RDW 13.0 (11.5-15.5) % Plt Count 223 (150-450) k/uL Neutrophils % 72 % Lymphocytes % 19 % Monocytes % 6 % Eosinophils % 1 % Basophils % 1 % Neutrophils # 7.7 (1.3-7.7) k/uL Lymphocytes # 2.0 (1.0-4.8) k/uL Monocytes # 0.7 (0-1.0) k/uL Eosinophils # 0.1 (0-0.7) k/uL Basophils # 0.1 (0-0.2) k/uL Sodium 128 L (137-145) mmol/L Potassium 3.5 (3.5-5.1) mmol/L Chloride 91 L (98-107) mmol/L Carbon Dioxide 24 (22-30) mmol/L Anion Gap 13 mmol/L BUN 26 H (7-17) mg/dL Creatinine 1.10 H (0.52-1.04) mg/dL Est GFR (MDRD) Af Amer 58 (>60 ml/min/1.73 sqM) Est GFR (MDRD) Non-Af 48 (>60 ml/min/1.73 sqM) Glucose 101 H (74-99) mg/dL Calcium 9.3 (8.4-10.2) mg/dL Magnesium 1.7 (1.6-2.3) mg/dL Total Bilirubin 0.6 (0.2-1.3) mg/dL AST 32 (14-36) U/L ALT 50 (9-52) U/L Alkaline Phosphatase 97 (38-126) U/L Total Protein 6.8 (6.3-8.2) g/dL Albumin 4.0 (3.5-5.0) g/dL Lipase 72 (23-300) U/L Urine Color Yellow Urine Appearance Cloudy H (Clear) Urine pH 5.0 (5.0-8.0) Ur Specific Pandora 1.012 (1.001-1.035) Urine Protein Negative (Negative) Urine Glucose (UA) Negative (Negative) Urine Ketones Trace H (Negative) Urine Blood Negative (Negative) Urine Nitrite Negative (Negative) Urine Bilirubin Negative (Negative) Urine Urobilinogen <2.0 (<2.0) mg/dL Ur Leukocyte Esterase Large H (Negative) Urine RBC 2 (0-5) /hpf Urine WBC 36 H (0-5) /hpf Ur Squamous Epith Cells 23 H (0-4) /hpf Amorphous Sediment Occasional H (None) /hpf Urine Bacteria Rare H (None) /hpf Hyaline Casts 23 H (0-2) /lpf Urine Mucus Rare H (None) /hpf Disposition Clinical Impression: Nausea and vomiting, Hyponatremia, UTI (urinary tract infection) Disposition: HOME SELF-CARE Condition: Good Instructions: Urinary Tract Infection in Women (ED) Prescriptions: Cephalexin [Keflex] 500 mg PO Q8HR #20 cap Ondansetron [Zofran] 4 mg PO Q8HR PRN #20 tab PRN Reason: Nausea Referrals: Hans Acosta MD [Primary Care Provider] - 1-2 days
[2016-12-12 16:02] LABS: Basophils # (A) 0.1 k/uL (0-0.2); Basophils % (A) 1 %; CH 32.4; CHCM 35.3; Eosinophils # (A) 0.1 k/uL (0-0.7); Eosinophils % (A) 1 %; HCT 41.6 % (34.0-46.0); HDW 2.37; HGB 13.9 gm/dL (11.4-16.0); Luc # (Auto) 0.23; Luc % (Auto) 2; Lymphocytes % (A) 19 %; MCH 30.9 pg (25.0-35.0); MCHC 33.5 g/dL (31.0-37.0); MCV 92.2 fL (80.0-100.0); Mean Platelet Volume 7.9; Monocytes # (A) 0.7 k/uL (0-1.0); Monocytes % (A) 6 %; Neutrophils # (A) 7.7 k/uL (1.3-7.7); Neutrophils % (A) 72 %; RBC 4.51 m/uL (3.80-5.40); WBC 10.8 k/uL (3.8-10.6); WBC (Perox) 11.03
[2016-12-12 16:03] LABS: Amorphous Sediment,Urine Occasional /hpf; Appearance,Urine Cloudy (Clear); Bacteria,Urine Rare /hpf; Bilirubin,Urine Negative (Negative); Glucose,Urine (UA) Negative (Negative); Ketones,Urine Trace (Negative); Leukocyte Esterase,Urine Large (Negative); Mucus,Urine Rare /hpf; Nitrite,Urine Negative (Negative); Particle Count 6784; Protein,Urine Negative (Negative); RBC,Urine 2 /hpf (0-5); Specific Gravity,Urine 1.012 (1.001-1.035); Squamous Epithelial Cell,Urine 23 /hpf (0-4); UA Billing (MACRO vs. MICRO) MICRO; Urobilinogen,Urine <2.0 mg/dL (<2.0); WBC,Urine 36 /hpf (0-5)
[2016-12-12 16:05] LABS: Calcium 9.3 mg/dL (8.4-10.2); Magnesium 1.7 mg/dL (1.6-2.3); Potassium 3.5 mmol/L (3.5-5.1); Total Bilirubin 0.6 mg/dL (0.2-1.3); Total Protein 6.8 g/dL (6.3-8.2)
[2016-12-12] MEDS ORDERED: CEPHALEXIN 500 MG CAP PO STA (16:17)
[2016-12-12 18:52] VITALS: BP 162/73; PULSE 72; TEMP 97.9
== END 2016-12-12 19:04 | disposition home or self-care (01) ==
LOC: EC 13:51
DX: E87.1 Hypo-osmolality and hyponatremia (principal); N39.0 Urinary tract infection, site not specified; K83.8 Other specified diseases of biliary tract; K82.8 Other specified diseases of gallbladder; C50.919 Malignant neoplasm of unspecified site of unspecified female breast; R19.7 Diarrhea, unspecified; I10 Essential (primary) hypertension; Z87.891 Personal history of nicotine dependence; Z79.899 Other long term (current) drug therapy; Z88.0 Allergy status to penicillin; Z88.2 Allergy status to sulfonamides; Z88.5 Allergy status to narcotic agent; Z90.49 Acquired absence of other specified parts of digestive tract
CPT/HCPCS: 99284 ×2; 96365 ×2; 96366 ×3; 96375 ×4; 36415; 93005; 80053; 83690; 83735; 85025; 81001; J2405; J1885

== ENCOUNTER → 2016-12-19 | Outpatient (CLI) | payer MEDICARE, OTHER ==
[~2016-12-19] MED LIST changes: -SODIUM CHLORIDE 0.9% 250 ML in EMPTY BAG 1 BAG IV PRN; -SODIUM CHLORIDE 0.9% 500 ML in EMPTY BAG 1 BAG IV PRN
[2016-12-19 14:31] VITALS: BP 150/95; PULSE 61; RESP 16; TEMP 97.7
[2016-12-19 14:57] LABS: Basophils % (A) 1 %; CH 31.8; CHCM 33.4; Eosinophils # (A) 0.1 k/uL (0-0.7); Eosinophils % (A) 1 %; HCT 38.1 % (34.0-46.0); HDW 2.56; HGB 12.5 gm/dL (11.4-16.0); Luc # (Auto) 0.12; Luc % (Auto) 2; Lymphocytes # (A) 1.3 k/uL (1.0-4.8); Lymphocytes % (A) 18 %; MCH 31.5 pg (25.0-35.0); MCHC 32.9 g/dL (31.0-37.0); MCV 95.5 fL (80.0-100.0); Mean Platelet Volume 7.2; Monocytes # (A) 0.4 k/uL (0-1.0); Monocytes % (A) 6 %; Neutrophils # (A) 5.1 k/uL (1.3-7.7); Neutrophils % (A) 73 %; RBC 3.98 m/uL (3.80-5.40); RDW 12.6 % (11.5-15.5); WBC (Perox) 7.33
[2016-12-19 15:05] LABS: Anion Gap 10 mmol/L; Blood Urea Nitrogen 13 mg/dL (7-17); Calcium 9.6 mg/dL (8.4-10.2); Carbon Dioxide 27 mmol/L (22-30); Chloride 95 mmol/L (98-107); Glucose 151 mg/dL (74-99); Non-African American GFR(MDRD) >60 (>60 ml/min/1.73 sqM); Potassium 4.1 mmol/L (3.5-5.1); Sodium 132 mmol/L (137-145)
== END ==
LOC: PROCWHC3 14:21
PROVIDERS: ATTEND Internal Medicine
DX: E86.0 Dehydration (principal)
CPT/HCPCS: 36415; 80048; 85025; 96360

== ENCOUNTER → 2016-12-20 | Outpatient (CLI) | payer MEDICARE, OTHER ==
--- NOTE | 2016-12-20 14:42 | MR ---
EXAMINATION TYPE: MR pancreas wo/w con DATE OF EXAM: 12/20/2016 COMPARISON: CT abdomen pelvis dated 12/20/2016. HISTORY: Lower Abd pain CONTRAST: Standard multiplanar, multisequence MRI departmental pancreatic abdominal protocol utilizing 6 mL int ravenous Gadavist gadolinium contrast. FINDINGS: Diffuse ductal dilatation of the main pancreatic duct predominantly involving the body and head, slig htly varicose with areas of stricturing, as well as diffuse common bile duct and common hepatic duct dilation (up to 1.0 cm) are secondary to a large pancreatic head mass with a sclerosing appearance te thering the mesentery. This is difficult to accurately measure as it insinuates along the tissue plan es with a focal area of arterial hypoenhancement on series 701 image 306 measuring 3.7 x 2.9 cm. The superior mesenteric artery is somewhat tortuous in course but appears to be nonencased on image 346 o f series 701. The mass extends more superiorly near the celiac axis containing with the common hepati c artery extending through the mass slightly narrowed. Within the mass there are multiple nonenhancin g and T1 hypointense foci thought to relate to dilated side branch ducts. There appears to be encasem ent of the superior mesenteric vein as the superior mesenteric vein cannot be from the mass . Additionally within the portal vein is a small filling defect is seen on the seventh 01 image 320 w ith extensive venous collaterals of the upper abdomen on series 701 image 290. Portal vein is then co mpressed by the pancreatic mass and encased suspicious for n thrombosis. The liver does not demonstrate evidence of signal drop on out on a phase imaging. No hepatic steatosi s. Multiple wedge-shaped peripheral arterial enhance regions are seen that equilibrates on delayed im aging and are thought to represent arterial portal shunts or perfusion abnormalities as they are all subcapsular and portal vein thrombosis is suspected. No corresponding T2 or T1 signal abnormalities o n precontrast imaging are seen. There is a small amount of perihepatic ascites. Nonenhancing simple cortical renal cysts as present on the right measuring 2.6 cm. No evidence of hyd ronephrosis. Smaller cortical cyst is subcentimeter in the left upper pole. Inferior vena cava is mar kedly diminutive relating to hypovolemia. Subsegmental atelectasis is seen of the anterior left lung. Large dystrophic calcification is seen within the right breast tissue. Intrahepatic biliary ductal d ilatation is mild at predominates on the left. Gallbladder is diffusely distended to 10.3 cm. There i s a partial intrathoracic stomach. Few peripancreatic lymph nodes are enlarged measuring up to 8 mm. Lymph node measuring up to 9 mm is also seen near the celiac axis. IMPRESSION: 1. 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 2. 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 No T2 or T1 hepatic abnormalit ies to correspond to hepatic metastasis. 3. Localized. Pancreatic and celiac axis adenopathy. 4. Partial intrathoracic stomach. 5. Simple right renal cyst. Findings were discussed with the ordering physician Dr. Mendes by Dr. Quiñonez at approximately 1415 on .
== END | disposition home or self-care (01) ==
LOC: RADMRIMAIN 11:19
PROVIDERS: ATTEND Internal Medicine Gastroenterology
DX: K83.8 Other specified diseases of biliary tract (principal); R59.0 Localized enlarged lymph nodes; N28.1 Cyst of kidney, acquired; K86.89 Other specified diseases of pancreas; I81 Portal vein thrombosis
CPT/HCPCS: 74183; A9581

== ENCOUNTER → 2016-12-21 | Outpatient (CLI) | payer MEDICARE, OTHER ==
--- NOTE | 2016-12-21 07:37 | US ---
EXAMINATION TYPE: US gallbladder DATE OF EXAM: 12/21/2016 COMPARISON: MRI & CT CLINICAL HISTORY: K82.1HYDROPS OF GALLBLADDER. EXAM MEASUREMENTS: Liver Length: 12.5 cm Gallbladder Wall: 0.3 cm CBD: 1.3 cm Right Kidney: 9.3 x 4.6 x 5.1 cm Pancreas: Question of a panc head mass, hypoechoic area measures 2.3 x 1.8 x 1.9 cm Liver: wnl Gallbladder: distended at 10 cm Evidence for sonographic Anthony's sign: No CBD: dilated at 1.3 cm Right Kidney: cyst measures 2.8 x 2.7 x 2.7 cm Incidental note is made of small amount of free fluid around liver. IMPRESSION: 1. Question a pancreatic head mass which is been reported by previous MRI. 2. Gallbladder distention measuring 10 cm with dilated common bile duct measuring 1.3 cm.
== END | disposition home or self-care (01) ==
LOC: RADUSWWP 06:48
PROVIDERS: ATTEND Internal Medicine
DX: K82.8 Other specified diseases of gallbladder (principal); K83.8 Other specified diseases of biliary tract
CPT/HCPCS: 76705

== ENCOUNTER 2016-12-23 14:34 | Emergency (ER) | payer MEDICARE, OTHER ==
[2016-12-23] MEDS ORDERED: SODIUM CHLORIDE 0.9% 1,000 ML IV STA ×2 (15:16)
--- NOTE | 2016-12-23 15:20 | ED ---
Weakness HPI - General Chief complaint: Weakness Stated complaint: Weakness Time Seen by Provider: 12/23/16 15:00 Source: patient, family, RN notes reviewed Mode of arrival: wheelchair Limitations: no limitations - History of Present Illness Initial comments: This is a 81-year-old female who presents with complaints of feeling very weak lack of energy she did decrease oral intake over last several days. Her and the patient himself feels that she may be dehydrated. She's had no nausea vomiting or other symptoms. She did recently have a workup for metastatic disease she probably does have left breast cancer and is scheduled to have a procedure done at [facility] in the near future by Dr. caldwell. She had decreased liquid and food intake. She does complain of some nonspecific abdominal pain. She did have a PET scan yesterday she recently has had an ultrasound as well as abdominal CT. Per her she may have a spot on her lung. MD Complaint: generalized weakness, lack of energy - Related Data Home Medications Medication Instructions Recorded Confirmed Atenolol [Tenormin] 50 mg PO DAILY 12/12/16 12/23/16 Previous Rx's Medication Instructions Recorded Cephalexin [Keflex] 500 mg PO Q8HR #20 cap 12/12/16 Allergies Allergy/AdvReac Type Severity Reaction Status Date / Time codeine Allergy Severe Nausea & Verified 12/23/16 15:09 Vomiting Penicillins Allergy Mild Unknown Verified 12/23/16 15:09 Childhood Sulfa (Sulfonamide Allergy Nausea & Verified 12/23/16 15:09 Antibiotics) Vomiting Review of Systems ROS Statement: Those systems with pertinent positive or pertinent negative responses have been documented in the HPI. ROS Other: All systems not noted in ROS Statement are negative. Past Medical History Past Medical History: Cancer, Hypertension Additional Past Medical History / Comment(s): hemophenothorax, hx right breast cancer 2001, hx skin cancer on nose, face and foot. History of Any Multi-Drug Resistant Organisms: None Reported Past Surgical History: Adenoidectomy, Appendectomy, Breast Surgery, Tonsillectomy, Tubal Ligation Additional Past Surgical History / Comment(s): LOWER BACK SURGERY, DROP RIGHT FOOT Past Anesthesia/Blood Transfusion Reactions: No Reported Reaction Past Psychological History: No Psychological Hx Reported Smoking Status: Former smoker Past Alcohol Use History: None Reported Past Drug Use History: None Reported General Exam - General Exam Comments Initial Comments: This is a well-developed well-nourished awake alert oriented 3 female Limitations: no limitations General appearance: alert, in no apparent distress Head exam: Present: atraumatic, normocephalic, normal inspection Eye exam: Present: normal appearance, PERRL, EOMI. Absent: scleral icterus, conjunctival injection, periorbital swelling ENT exam: Present: mucous membranes dry Neck exam: Present: normal inspection. Absent: tenderness, meningismus, lymphadenopathy Respiratory exam: Present: normal lung sounds bilaterally. Absent: respiratory distress, wheezes, rales, rhonchi, stridor Cardiovascular Exam: Present: regular rate, normal rhythm, normal heart sounds. Absent: systolic murmur, diastolic murmur, rubs, gallop, clicks GI/Abdominal exam: Present: soft, normal bowel sounds. Absent: distended, tenderness (Abdomen nonspecific tenderness palpation no guarding rebound masses or bruits), guarding, rebound, rigid Extremities exam: Present: normal inspection, full ROM, normal capillary refill. Absent: tenderness, pedal edema, joint swelling, calf tenderness Back exam: Present: normal inspection Neurological exam: Present: alert, oriented X3, CN II-XII intact Psychiatric exam: Present: normal affect, normal mood Skin exam: Present: warm, dry, intact, normal color. Absent: rash Course Vital Signs 12/23/16 12/23/16 14:50 17:00 Temperature 97.9 F 98.5 F Pulse Rate 63 68 Respiratory 16 16 Rate Blood Pressure 166/81 189/88 O2 Sat by Pulse 99 100 Oximetry EKG Findings - EKG Results: EKG: interpreted by MANUEL, sinus rhythm (EKG shows normal sinus rhythm a 63 appear of 01 58 QRS 86 QT since QTC of 4:30/440 evidence a left axis deviation no acute ST T-wave changes.) Medical Decision Making - Medical Decision Making Patient is awake and alert I did discuss the findings with her. She'll be discharged after the completion of IV hydration she is a keep her follow-up with her doctor and return when necessary - Lab Data Result diagrams: 12/23/16 15:25 12/23/16 15:25 Lab Results 12/23/16 12/23/16 12/23/16 Range/Units 15:25 15:25 15:25 WBC 7.5 (3.8-10.6) k/uL RBC 4.00 (3.80-5.40) m/uL Hgb 12.4 (11.4-16.0) gm/dL Hct 36.8 (34.0-46.0) % MCV 92.1 (80.0-100.0) fL MCH 31.0 (25.0-35.0) pg MCHC 33.7 (31.0-37.0) g/dL RDW 12.7 (11.5-15.5) % Plt Count 191 (150-450) k/uL Neutrophils % 72 % Lymphocytes % 18 % Monocytes % 7 % Eosinophils % 1 % Basophils % 1 % Neutrophils # 5.4 (1.3-7.7) k/uL Lymphocytes # 1.4 (1.0-4.8) k/uL Monocytes # 0.5 (0-1.0) k/uL Eosinophils # 0.1 (0-0.7) k/uL Basophils # 0.0 (0-0.2) k/uL Sodium 133 L (137-145) mmol/L Potassium 3.4 L (3.5-5.1) mmol/L Chloride 100 (98-107) mmol/L Carbon Dioxide 21 L (22-30) mmol/L Anion Gap 12 mmol/L BUN 13 (7-17) mg/dL Creatinine 0.71 (0.52-1.04) mg/dL Est GFR (MDRD) Af Amer >60 (>60 ml/min/1.73 sqM) Est GFR (MDRD) Non-Af >60 (>60 ml/min/1.73 sqM) Glucose 98 (74-99) mg/dL POC Glucose (mg/dL) (75-99) mg/dL POC Glu Protein Scientist ID Calcium 9.2 (8.4-10.2) mg/dL Magnesium 1.8 (1.6-2.3) mg/dL Total Bilirubin 0.8 (0.2-1.3) mg/dL AST 32 (14-36) U/L ALT 51 (9-52) U/L Alkaline Phosphatase 94 (38-126) U/L Total Creatine Kinase 66 (30-135) U/L CK-MB (CK-2) 7.7 H* (0.0-2.4) ng/mL CK-MB (CK-2) Rel Index 11.7 Total Protein 6.6 (6.3-8.2) g/dL Albumin 3.8 (3.5-5.0) g/dL Amylase <30 L (30-110) U/L Lipase 38 (23-300) U/L Urine Color Urine Appearance (Clear) Urine pH (5.0-8.0) Ur Specific [place] (1.001-1.035) Urine Protein (Negative) Urine Glucose (UA) (Negative) Urine Ketones (Negative) Urine Blood (Negative) Urine Nitrite (Negative) Urine Bilirubin (Negative) Urine Urobilinogen (<2.0) mg/dL Ur Leukocyte Esterase (Negative) Urine RBC (0-5) /hpf Urine WBC (0-5) /hpf Ur Squamous Epith Cells (0-4) /hpf Urine Bacteria (None) /hpf Hyaline Casts (0-2) /lpf Urine Mucus (None) /hpf 12/23/16 12/23/16 Range/Units 15:25 16:32 WBC (3.8-10.6) k/uL RBC (3.80-5.40) m/uL Hgb (11.4-16.0) gm/dL Hct (34.0-46.0) % MCV (80.0-100.0) fL MCH (25.0-35.0) pg MCHC (31.0-37.0) g/dL RDW (11.5-15.5) % Plt Count (150-450) k/uL Neutrophils % % Lymphocytes % % Monocytes % % Eosinophils % % Basophils % % Neutrophils # (1.3-7.7) k/uL Lymphocytes # (1.0-4.8) k/uL Monocytes # (0-1.0) k/uL Eosinophils # (0-0.7) k/uL Basophils # (0-0.2) k/uL Sodium (137-145) mmol/L Potassium (3.5-5.1) mmol/L Chloride (98-107) mmol/L Carbon Dioxide (22-30) mmol/L Anion Gap mmol/L BUN (7-17) mg/dL Creatinine (0.52-1.04) mg/dL Est GFR (MDRD) Af Amer (>60 ml/min/1.73 sqM) Est GFR (MDRD) Non-Af (>60 ml/min/1.73 sqM) Glucose (74-99) mg/dL POC Glucose (mg/dL) 95 (75-99) mg/dL POC Glu Protein Scientist ID [place] Calcium (8.4-10.2) mg/dL Magnesium (1.6-2.3) mg/dL Total Bilirubin (0.2-1.3) mg/dL AST (14-36) U/L ALT (9-52) U/L Alkaline Phosphatase (38-126) U/L Total Creatine Kinase (30-135) U/L CK-MB (CK-2) (0.0-2.4) ng/mL CK-MB (CK-2) Rel Index Total Protein (6.3-8.2) g/dL Albumin (3.5-5.0) g/dL Amylase (30-110) U/L Lipase (23-300) U/L Urine Color Yellow Urine Appearance Cloudy H (Clear) Urine pH 6.0 (5.0-8.0) Ur Specific [place] 1.013 (1.001-1.035) Urine Protein Trace H (Negative) Urine Glucose (UA) Negative (Negative) Urine Ketones 2+ H (Negative) Urine Blood Negative (Negative) Urine Nitrite Negative (Negative) Urine Bilirubin Negative (Negative) Urine Urobilinogen 2.0 (<2.0) mg/dL Ur Leukocyte Esterase Small H (Negative) Urine RBC 1 (0-5) /hpf Urine WBC 6 H (0-5) /hpf Ur Squamous Epith Cells 12 H (0-4) /hpf Urine Bacteria Rare H (None) /hpf Hyaline Casts 1 (0-2) /lpf Urine Mucus Rare H (None) /hpf Disposition Clinical Impression: Dehydration, Breast cancer in female Disposition: HOME SELF-CARE Condition: Good Instructions: Dehydration (ED) Referrals: Hans Acosta MD [Primary Care Provider] - 1-2 days
[2016-12-23 15:27] LABS: Glucose,Whole Blood 95 mg/dL (75-99)
[2016-12-23 15:31] LABS: Basophils % (A) 1 %; CH 31.7; CHCM 34.6; Eosinophils # (A) 0.1 k/uL (0-0.7); Eosinophils % (A) 1 %; HCT 36.8 % (34.0-46.0); HDW 2.67; HGB 12.4 gm/dL (11.4-16.0); Luc # (Auto) 0.15; Luc % (Auto) 2; Lymphocytes # (A) 1.4 k/uL (1.0-4.8); Lymphocytes % (A) 18 %; MCHC 33.7 g/dL (31.0-37.0); MCV 92.1 fL (80.0-100.0); Mean Platelet Volume 7.4; Monocytes # (A) 0.5 k/uL (0-1.0); Monocytes % (A) 7 %; Neutrophils # (A) 5.4 k/uL (1.3-7.7); Neutrophils % (A) 72 %; RDW 12.7 % (11.5-15.5); WBC 7.5 k/uL (3.8-10.6); WBC (Perox) 7.21
[2016-12-23 15:42] LABS: ALT 51 U/L (9-52); AST 32 U/L (14-36); Alkaline Phosphatase 94 U/L (38-126); Amylase <30 U/L (30-110); Anion Gap 12 mmol/L; Blood Urea Nitrogen 13 mg/dL (7-17); Calcium 9.2 mg/dL (8.4-10.2); Carbon Dioxide 21 mmol/L (22-30); Chloride 100 mmol/L (98-107); Glucose 98 mg/dL (74-99); Magnesium 1.8 mg/dL (1.6-2.3); Non-African American GFR(MDRD) >60 (>60 ml/min/1.73 sqM); Potassium 3.4 mmol/L (3.5-5.1); Sodium 133 mmol/L (137-145); Total Bilirubin 0.8 mg/dL (0.2-1.3); Total Protein 6.6 g/dL (6.3-8.2)
[2016-12-23 16:06] LABS: Creatine Kinase MB 7.7 ng/mL (0.0-2.4)
[2016-12-23 16:43] LABS: Appearance,Urine Cloudy (Clear); Bacteria,Urine Rare /hpf; Bilirubin,Urine Negative (Negative); Glucose,Urine (UA) Negative (Negative); Ketones,Urine 2+ (Negative); Leukocyte Esterase,Urine Small (Negative); Mucus,Urine Rare /hpf; Nitrite,Urine Negative (Negative); Particle Count 1996; Protein,Urine Trace (Negative); RBC,Urine 1 /hpf (0-5); Specific Gravity,Urine 1.013 (1.001-1.035); Squamous Epithelial Cell,Urine 12 /hpf (0-4); UA Billing (MACRO vs. MICRO) MICRO; WBC,Urine 6 /hpf (0-5)
[2016-12-23 18:01] VITALS: BP 200/82; PULSE 63; RESP 17; TEMP 97.9
== END 2016-12-23 18:11 | disposition home or self-care (01) ==
LOC: EC 14:34
DX: E86.0 Dehydration (principal); C50.911 Malignant neoplasm of unspecified site of right female breast; I10 Essential (primary) hypertension; Z85.828 Personal history of other malignant neoplasm of skin; Z87.891 Personal history of nicotine dependence; Z98.890 Other specified postprocedural states; Z79.899 Other long term (current) drug therapy; Z88.0 Allergy status to penicillin; Z88.2 Allergy status to sulfonamides; Z88.5 Allergy status to narcotic agent
CPT/HCPCS: 36415; 80053; 81001; 82150; 82550; 82553; 83690; 83735; 85025; 93005; 96360; 96361; 99284